=== PATIENT | male | born 1955 ===

== ENCOUNTER 2019-10-06 22:42 | Outpatient (REF) | payer OTHER, SELFPAY ==
[2019-10-06 23:10] LABS: Abs Immature Grans 0.01 k/cumm (0.0-0.09); Absolute Basophil Count 0.02 k/cumm (0.0-0.2); Absolute Eosinophil Count 0.04 k/cumm (0.0-0.7); Absolute Lymphocyte Count 1.76 k/cumm (1.2-3.4); Absolute Monocyte Count 0.57 k/cumm (0.11-0.7); Absolute Neutrophil Count 3.88 k/cumm (1.2-6.7); Basophils % 0.3; Eosinophils % 0.6; HCT 49.3 % (40.0-50.0); HGB 16.5 g/dL (13.5-17.5); Immature Grans % 0.2 %; Mean Corp. HGB Concentration 33.5 g/dL (32.0-36.0); Mean Corpuscular Hemoglobin 32.7 pg (27.0-33.0); Mean Corpuscular Volume 97.6 fL (80-95); Mean Platelet Volume 10.9 fL (8.0-11.0); Monocytes % 9.1; Neutrophils % 61.8; Platelet Count 233 x1000/uL (130-400); RBC 5.05 m/cumm (4.50-6.00); RBC Distribution Width 12.7 % (11.8-14.1); White Blood Cell Count 6.28 k/cumm (4.4-10.8)
[2019-10-06 23:25] LABS: ALT 33 U/L (16-63); AST 22 U/L (15-37); Albumin 3.9 g/dL (3.4-5.0); Alkaline Phosphatase 89 U/L (46-116); Anion Gap 9.8 mmol/L (3-11); BUN 11 mg/dL (7-18); Bilirubin, Total 0.6 mg/dL (0.2-1.0); CO2 28.2 mmol/L (21.0-32.0); CREATININE 0.93 mg/dL (0.70-1.30); Calcium 8.7 mg/dL (8.5-10.1); Calculated LDL 178 mg/dL; Chloride 105 mmol/L (98-107); Cholesterol 257 mg/dL (<200); Glucose 85 mg/dL (74-106); HDL Cholesterol 62 mg/dL (40-60); Potassium 4.5 mmol/L (3.5-5.1); Sodium 143 mmol/L (136-145); TSH 1.91 uIU/mL (0.36-3.74); Total Protein 7.3 g/dL (6.4-8.2); Triglyceride 86 mg/dL (<150)
== END 2019-10-06 23:02 ==
LOC: NCHCN 22:42
PROVIDERS: Visit Provider Nurse Practitioner Community Health
DX: I10 Essential (primary) hypertension (principal); N20.0 Calculus of kidney
CPT/HCPCS: 80053; 80061; 84443; 85025

== ENCOUNTER 2020-03-15 22:36 | Outpatient (REF) | payer OTHER, SELFPAY ==
[2020-03-15 21:43] LABS: Calculated LDL 144 mg/dL (<100); Cholesterol 224 mg/dL (<200); HDL Cholesterol 52 mg/dL (40-60); Triglyceride 141 mg/dL (<150)
== END 2020-03-15 22:56 ==
LOC: NCHCN 22:36
PROVIDERS: PCP Nurse Practitioner Community Health; Visit Provider Nurse Practitioner Community Health
DX: Z13.220 Encounter for screening for lipoid disorders (principal)
CPT/HCPCS: 80061